=== PATIENT | male | born 1995 | race Two or more races ===

== ENCOUNTER 2023-08-27 16:55 | Emergency (ER) | payer MEDICAID ==
[~2023-08-27] VITALS: Ht 165.1 cm; Wt 79.0 kg
[2023-08-27 16:58] VITALS: BP 117/53; PULSE 70; RESP 18; TEMP 98
[2023-08-27] MEDS ORDERED: HYDR-4062 PO (19:06)
[2023-08-27] MEDS ORDERED: IBUP-1492 PO (19:06)
== END 2023-08-27 19:15 | disposition home or self-care (01) ==
LOC: EMS 16:59
DX: S62.631A Displaced fracture of distal phalanx of left index finger, initial encounter for closed fracture (principal); X50.0XXA Overexertion from strenuous movement or load, initial encounter; Y93.89 Activity, other specified; Y92.89 Other specified places as the place of occurrence of the external cause; Y99.8 Other external cause status
CPT/HCPCS: 99283